=== PATIENT | female | born 1980 ===

== ENCOUNTER → 2023-11-04 10:38 | Outpatient (REF) | payer MEDICARE, OTHER, SELFPAY | LOC: RAD 10:38 | PROVIDERS: ATTENDING PHYSICIAN Physician Assistant Surgical | DX: S30.1XXD Contusion of abdominal wall, subsequent encounter (principal) | CPT/HCPCS: 76705 ==

== ENCOUNTER 2023-12-24 17:22 | Emergency (ER) | payer MEDICARE, OTHER, SELFPAY ==
[2023-12-24 17:22] VITALS: BMI 27.6
[2023-12-24 17:32] VITALS: BP 134/79
--- NOTE | 2023-12-24 19:09 | ED.GENMED ---
History of Present Illness
General
Chief Complaint: Female Patient Services Technician/Gu symptoms
Source: patient
Exam Limitations: none
Time Seen by Provider: 12/24/23 18:28
Nursing documentation reviewed up to this point in time: agreed with
Travel History
Have you had any contact with someone who has COVID-19?: No
Do you have any symptoms of coronavirus? Fever > 100 degrees, chills, cough, shortness of breath, sore throat, loss of taste or smell, muscle aches, or headache?: No
History of Present Illness
History of Present Illness:
43-year-old female presents emerged part complaining of left pelvic pain. She has a history of a left ovarian cyst, and is concerned she has a torsion. She called her gynecology oncology at [facility] who told her to discuss with her local TAX ADJUSTER.
She called Dr. Castellanos and was directed to the emergency department. She reports severe pain 2 days ago, and a dull pain for the past 2 weeks.
Past History
Past History
ED Past Medical History: Psychiatric (Bipolar)
ED Past Surgical History: Other (Abdominoplasty/liposuction/fat transfer to buttocks)
Social History
Tobacco: Non-smoker
Alcohol: None
Drug: None
Living: with family
Review of Systems
Review of Systems
Allergies reviewed?: Yes
All Other Systems: Not applicable
Constitutional: Reports no symptoms
EENT: Reports no symptoms
Respiratory: Reports no symptoms
Cardiac: Reports no symptoms
ABD/GI: Reports no symptoms
: Reports other (Pelvic pain left)
Musculoskeletal: Reports no symptoms
Skin: Reports no symptoms
Neurological: Reports no symptoms
Endocrine: Reports no symptoms
Hematologic/Lymphatic: Reports no symptoms
Psychiatric: Reports no symptoms
Phy Exam
Physical Exam
Physical Exam:
Physical Exam
General: no apparent distress, not acutely ill
Neck: supple. no meningeal signs. normal posterior pharynx
Heart: s1/s2 regular rate and rhythm, no murmur. equal radial
pulses.
HEENT: Pupils equal round reactive to light, EOMI
Lungs: no acute respiratory distress. clear bilaterally
Abdomen: normal bowel sounds. No CVAT, left pelvic tenderness, no rebound or guarding
Neuro: alert and oriented. no focal neurological deficits cranial nerves II through XII intact
Skin: no rash
Psychiatric: well kept. interactive and cooperative
Extremities: no edema. no calf tenderness. negative homans. good distal pulses
Course
Orders/Labs/Results
Orders:
Orders
12/24/23 17:34
Pelvis & Transvaginal US [US Pelvis W Transvag Combined] Urgent
Comment:
Reason For Exam: r/o L ovarian torsion
12/24/23 19:05
IV Insert/Care/Rem.- Treatment PRN
Morphine Sulfate 4 mg IV NOW STA
Ondansetron Injectable [Zofran] 4 mg IV NOW STA
12/24/23 19:08
Test Result ONCE
12/24/23 19:24
Complete Blood Count/With Diff Urgent
Comprehensive Metabolic Panel Urgent
HCG, Serum Qualitative Screen Urgent
12/24/23 20:42
Morphine Sulfate 4 mg .ROUTE .STK-MED ONE
12/24/23 20:44
Morphine Sulfate 4 mg .ROUTE .STK-MED ONE
12/24/23 20:45
Morphine Sulfate 4 mg IV NOW STA
12/24/23 21:26
Oxycodone/Acetaminophen [Percocet 5/325] 1 tablet PO Q4HPRN PRN
Abnormal Lab Results
12/24/23
19:24
Hgb 11.4 L g/dL
(12.0-16.0)
Hct 34.9 L %
(37.0-47.0)
MCH 26.6 L pg
(27.0-31.0)
MCHC 32.7 L g/dL
(33.0-37.0)
Absolute Monos (auto) 0.8 H 10^3/uL
(0.1-0.6)
Sodium 134 L mmol/L
(135-145)
Chloride 110 H mmol/L
(98-107)
Carbon Dioxide 20 L mmol/L
(22-30)
12/24/23 19:24
12/24/23 19:24
Vital Signs
Initial and Last Documented VS:
Initial Vital Signs
Temp Pulse Resp BP Pulse Ox
98.9 F 79 16 134/79 99
12/24/23 17:32 12/24/23 17:32 12/24/23 17:32 12/24/23 17:32 12/24/23 17:32
Last Documented Vital Signs
Temp Pulse Resp BP Pulse Ox
98.9 F 79 16 116/53 99
12/24/23 17:32 12/24/23 17:32 12/24/23 17:32 12/24/23 20:30 12/24/23 20:58
MDM/Problems Addressed
Differential Diagnosis Includes:
Ovarian torsion, ovarian cyst
MDM/Problems Addressed:
43-year-old female with left dermoid cyst, no blood flow seen.
Discussed with Dr. Mckeon at 7:30 PM, recommended I discussed with on-call Dr. Valentin. Sent a Rainelle text to Dr. Valentin at 7:34 PM, recommended I transfer patient to [facility] for surgery due to her prior abdominoplasty.
8:25 PM, discussed with Dr. Ton Mcdonnell at [facility], who states that they do not except benign TAX ADJUSTER emergencies such as ovarian torsion. 8:26 PM, Rainelle text sent to Dr. Valentin, requested she see patient.
*Radiology
Radiology exam reviewed: radiology read reviewed (Ultrasound shows left dermoid cyst, no blood flow seen on left ovary)
*Pulse Oximetry
Patient hypoxic: no
*EKG
Interpreted by ED Provider?: NA
*Safe Technician Interpretation
Rate: Safe Technician- N/A
*Critical Care Note
Total Time (30-74mins, 75-104mins- exclusive of procedures): Not Applicable
Patient Management
Social determinants of health affecting care: Living situation
Discussion with other providers: Hospitalist and Lining Baster (Discussed with TAX ADJUSTER Dr. Valentin, who does not suspect torsion. Stable for discharge.)
Escalation/DeEscalation of care consider admission/obs:
Admit not indicated,
ED Attending Note
-
Portions of this chart may have been created with voice recognition software.� Occasional wrong word or��sound alike� substitutions may have occurred due to the inherent limitations of voice recognition software.
Discharge Plan
Departure
Patient Disposition: Home (Routine Discharge)
Date of Disposition: 12/24/23
Time of Disposition: 21:36
Patient with high blood pressure during this ER visit?: No
Condition: Good
Discharge Problem:
Dermoid cyst of left ovary
Instructions: Ovarian Cyst ED
Prescriptions:
No Action
rabeprazole 20 mg Tablet,Delayed Release (Dr/Ec)
20 mg PO BID
valproic acid (as sodium salt) 250 mg/5 mL Solution
300 mg PO HS
Patient Comments:
12/24/2023: last filled 10/31/23, 540 ml for 90 days from [facility]
zolpidem [Ambien] 10 mg Tablet
10 mg PO HS PRN (Reason: insomnia)
Patient Comments:
12/24/2023: last filled 12/19/23, 90 tabs for 90 days from [facility]
Ibsrela 50 mg tablet
50 mg PO BID
clonazepam 0.5 mg tablet
0.5 mg PO TID
Patient Comments:
12/24/2023: last filled 12/19/23, 90 tabs for 30 days from [facility]
lithium carbonate 300 mg tablet extended release
600 mg PO HS
risperidone 0.25 mg tablet
0.25 mg PO HS
Patient Comments:
12/24/2023: taken w/ 0.5mg = 0.75mg
ipratropium bromide 42 mcg (0.06 %) spray,non-aerosol
2 spray INTRANASAL TID
risperidone 0.5 mg tablet
0.5 mg PO HS
Patient Comments:
12/24/2023: taken w/ 0.25mg = 0.75mg
cyclosporine [Restasis] 0.05 % dropperette
1 drp BOTH EYES BID
Referrals:
NONE,* [Family Provider] -
Activity Restrictions/Additional Instructions:
Follow up with Dr. Karlene Redding, as scheduled. Return for any concerns.
Interventions
Interventions:
*Risk Screen - Suicide Last Done: 12/24/23 17:30
*General Assessment Last Done: 12/24/23 17:30
*Neglect/Abuse Screening Last Done: 12/24/23 17:30
ED- Fall Risk Assessment Last Done: 12/24/23 19:33
*ED COVID-19 Vaccine History Last Done: 12/24/23 17:30
*Nursing Disposition Last Done: 12/24/23 21:57
ED-Female Genitourinary Assessment Last Done: 12/24/23 19:06
Discharge Date and Time
Discharge Date/Time: 12/24/23 21:58
Print Language: MALAWIAN
[2023-12-24 19:24] VITALS: BP 104/64
[2023-12-24 19:29] LABS: % Basophils 0.5 % (0-2); % Immature Granulocytes 0.3 % (0-0.5); % Lymphocytes 27.7 % (20.5-51.1); % Monocytes 8.6 % (1.7-9.3); % Neutrophils 62.9 % (42.2-75.2); Absolute Basophils 0.1 10^3/uL (0-0.2); Absolute Lymphocytes 2.6 10^3/uL (1.2-3.4); Absolute Monocytes 0.8 10^3/uL (0.1-0.6); Absolute Neutrophils 5.8 10^3/uL (1.4-6.5); Hematocrit 34.9 % (37.0-47.0); Hemoglobin 11.4 g/dL (12.0-16.0); Mean Corp Hgb Conc. 32.7 g/dL (33.0-37.0); Mean Corpuscular Hgb 26.6 pg (27.0-31.0); Mean Corpuscular Volume 81.4 fL (81.0-99.0); Mean Platelet Volume 9.9 fL (7.4-10.4); Nucleated Red Blood Cells % 0 %; Platelet Count 340 10^3/uL (130-400); Red Blood Cell Count 4.29 10^6/uL (4.20-5.40); Red Cell Dist. Width 13.3 % (11.5-14.5); White Blood Cell Count 9.3 10^3/uL (4.8-10.8)
[2023-12-24] MEDS: MORPHINE SULFATE 4 MG IV ×2 (19:30→20:46)
[2023-12-24 19:42] LABS: HCG, Serum Qualitative Screen Negative
[2023-12-24 19:49] LABS: ALT (SGPT) 13 U/L (0-35); AST (SGOT) 18 U/L (14-36); Albumin 4.1 g/dl (3.5-5.0); Alkaline Phosphatase 71 U/L (38-126); Blood Urea Nitrogen 17 mg/dl (7-17); Calcium 9.9 mg/dl (8.4-10.2); Carbon Dioxide 20 mmol/L (22-30); Chloride 110 mmol/L (98-107); Estimated Creatinine Clearance 96 ml/min; Glucose 83 mg/dl (70-99); Potassium 4.3 mmol/L (3.5-5.1); Sodium 134 mmol/L (135-145); Total Bilirubin 0.2 mg/dl (0.2-1.3); Total Protein 6.4 g/dl (6.3-8.2); eGFR > 60.00
[2023-12-24 19:54] VITALS: BP 99/49
[2023-12-24 20:00] VITALS: BP 107/67
[2023-12-24 20:30] VITALS: BP 116/53
[2023-12-24] MEDS: PERCOCET 5/325 1 TABLET PO (21:46)
== END 2023-12-24 21:58 | disposition home or self-care (01) ==
LOC: EMR 17:22
PROVIDERS: EMERGENCY PHYSICIAN Emergency Medicine; OTHER PHYSICIAN Obstetrics & Gynecology Gynecology
DX: R10.2 Pelvic and perineal pain (principal); R10.32 Left lower quadrant pain; D27.1 Benign neoplasm of left ovary; D25.9 Leiomyoma of uterus, unspecified; F31.9 Bipolar disorder, unspecified; M19.90 Unspecified osteoarthritis, unspecified site; G24.01 Drug induced subacute dyskinesia; L73.2 Hidradenitis suppurativa
CPT/HCPCS: 99284; 96374; 96376; 76830; 76856; 80053; 84703; 85025

== ENCOUNTER 2024-01-01 17:29 | Emergency (ER) | payer MEDICARE, OTHER, SELFPAY ==
[2024-01-01 17:36] VITALS: BP 127/79
[2024-01-01 17:49] LABS: % Basophils 0.6 % (0-2); % Immature Granulocytes 0.4 % (0-0.5); % Monocytes 6.5 % (1.7-9.3); % Neutrophils 67.5 % (42.2-75.2); Absolute Basophils 0.1 10^3/uL (0-0.2); Absolute Lymphocytes 2.7 10^3/uL (1.2-3.4); Absolute Monocytes 0.7 10^3/uL (0.1-0.6); Absolute Neutrophils 7.3 10^3/uL (1.4-6.5); Hemoglobin 11.2 g/dL (12.0-16.0); Mean Corp Hgb Conc. 32.9 g/dL (33.0-37.0); Mean Corpuscular Hgb 26.5 pg (27.0-31.0); Mean Corpuscular Volume 80.6 fL (81.0-99.0); Mean Platelet Volume 9.5 fL (7.4-10.4); Nucleated Red Blood Cells % 0 %; Platelet Count 344 10^3/uL (130-400); Red Blood Cell Count 4.22 10^6/uL (4.20-5.40); Red Cell Dist. Width 13.2 % (11.5-14.5); White Blood Cell Count 10.8 10^3/uL (4.8-10.8)
[2024-01-01 18:00] LABS: HCG, Serum Qualitative Screen Negative
[2024-01-01 18:11] LABS: ALT (SGPT) 19 U/L (0-35); AST (SGOT) 17 U/L (14-36); Albumin 4.1 g/dl (3.5-5.0); Alkaline Phosphatase 77 U/L (38-126); Blood Urea Nitrogen 15 mg/dl (7-17); Calcium 9.3 mg/dl (8.4-10.2); Carbon Dioxide 26 mmol/L (22-30); Chloride 106 mmol/L (98-107); Glucose 115 mg/dl (70-99); Potassium 4.5 mmol/L (3.5-5.1); Sodium 134 mmol/L (135-145); Total Bilirubin 0.2 mg/dl (0.2-1.3); Total Protein 6.3 g/dl (6.3-8.2); eGFR > 60.00
--- NOTE | 2024-01-01 19:17 | ED.GENMED ---
History of Present Illness
<KYLEE Elaine - Last Filed: 01/01/24 23:00>
General
Chief Complaint: Female Mass Spec/Gu symptoms
Source: patient
Exam Limitations: none
Time Seen by Provider: 01/01/24 18:01
Travel History
Have you had any contact with someone who has COVID-19?: No
Do you have any symptoms of coronavirus? Fever > 100 degrees, chills, cough, shortness of breath, sore throat, loss of taste or smell, muscle aches, or headache?: No
History of Present Illness
History of Present Illness:
This is a 43 year old female that comes in with c/o left ovarian pain. Patient states that she was seen here on Saturday . States that she is going to [facility] on the for surgery as she was told it was to complicated for the POWER CHISEL OPERATOR here. States
that on Saturday she has a large cyst on ovary. Today she was in the car and driving and she got this shooting pain. States that about 1/2 hour after the pain started she got out of the car and noted that she had blood running down her leg.
States that she called the OB and was told to come to the ER. States that she has not had any further bleeding since that time but has continue with pain. States that 3 days ago she also started with some back pain. This has not gone away since.
States that she has been taking her Percocet but this is not helping the pain. States that she has had diarrhea. Denies any fever, chills, chest pain, SOB, nausea, vomiting, headache, dizziness, urinary burning.
Past History
<KYLEE Elaine - Last Filed: 01/01/24 23:00>
Past History
ED Past Medical History: Psychiatric (Bipolar) and Other (Migraine, Tardive Dyskinesia, Renal calculus, Anemia, IBS-C)
ED Past Surgical History: Orthopedic (Left knee surgery), Tonsilectomy (Adenoids) and Other (Abdominoplasty/liposuction/fat transfer to buttocks, Nasal surgery, Breast Augmentation, )
Social History
Tobacco: Former smoker (Uses [employer] to have something to hold)
Alcohol: None
Drug: None
Personal:
Living: with family
Review of Systems
<KYLEE Elaine - Last Filed: 01/01/24 23:00>
Review of Systems
Constitutional: Reports no symptoms; Denies fever or chills
EENT: Reports no symptoms
Respiratory: Denies cough or trouble breathing
Cardiac: Reports no symptoms; Denies chest pain
ABD/GI: Reports abdominal pain and diarrhea; Denies nausea or vomiting
: Reports bleeding (Vaginal bleeding); Denies dysuria, frequency or urgency
Musculoskeletal: Reports no symptoms
Skin: Reports no symptoms
Neurological: Reports no symptoms; Denies dizzy or headache
Psychiatric: Reports no symptoms
Phy Exam
<KYLEE Elaine - Last Filed: 01/01/24 23:00>
General Physical Exam
General Presentation: mild distress
General age: appears stated age
General Skin: warm and dry
General Habitus: normal
General Mental: alert
General Hydration: appears well hydrated
ENT Exam
ENT Exam: TM's normal, pharynx normal and neck supple
Eye Exam
Eye Exam: EOMI
Cardiovascular Exam
Cardiovascular Exam: regular rate/rhythm, no edema, no murmur and normal peripheral pulses
Pulmonary Exam
Pulmonary Exam: lungs clear, no respiratory distress, no rales, chest non tender, no crackles, no rhonchi, no wheezing and no cough
Gastrointestinal Exam
Gastrointestinal Exam: normal bowel sounds, soft, no organomegaly, no pulsatile mass, non distended and tender (Generalized tenderness with palpation)
Musculoskeletal Exam
Musculoskeletal Exam: full ROM and no edema
Skin Exam
Skin Exam: normal color, warm/dry, no rash and no petechia
Psychiatric Exam
Psychiatric Exam: normal mood/affect
Course
<KYLEE Elaine - Last Filed: 01/01/24 23:00>
Orders/Labs/Results
Orders:
Orders
01/01/24 17:38
US Pelvis W Transvag Combined Urgent
Comment:
Reason For Exam: rule out left torsion
01/01/24 17:39
Test Result ONCE
01/01/24 17:42
Complete Blood Count/With Diff Urgent
Comprehensive Metabolic Panel Urgent
HCG, Serum Qualitative Screen Urgent
01/01/24 19:17
HYDROmorphone [Dilaudid] 0.5 mg IV NOW STA
Ondansetron Injectable [Zofran] 4 mg IV NOW STA
01/01/24 19:41
HYDROmorphone [Dilaudid] 0.5 mg IV NOW STA
01/01/24 20:14
Urinalysis Reflex To Culture Urgent
Date Specimen was Collected: 01/01/24
Time Specimen was Collected: 17:39
Urine Microscopic Reflex Cult Urgent
01/01/24 20:30
Midazolam HCl [Versed] 2 mg .ROUTE .STK-MED ONE
01/01/24 20:31
Dexamethasone Sod Phosphate [Decadron] 20 mg .ROUTE .STK-MED ONE
Fentanyl Citrate/Pf [Sublimaze] 100 mcg .ROUTE .STK-MED ONE
Lidocaine 2% Mpf [Xylocaine Mpf 2%] 100 mg .ROUTE .STK-MED ONE
Ondansetron Injectable [Zofran] 4 mg .ROUTE .STK-MED ONE
Propofol [Diprivan] 20 ml .ROUTE .STK-MED
Rocuronium [place] [Rocuronium] 50 mg .ROUTE .STK-MED ONE
01/01/24 20:51
CT Abd/pelvis W Iv Cont Urgent
Comment: r/o renal calculus. Look at Seroma
Reason For Exam: ABd pain,
01/01/24 21:23
Chlamydia/GC by PCR Urgent
[facility] Source: Endo-Cervical
Specimen Description:
Source:: ENDOCERVICAL
Date Specimen was Collected: 01/01/24
Time Specimen was Collected: 20:56
01/01/24 22:35
HYDROmorphone [Dilaudid] 1 mg IV NOW STA
Abnormal Lab Results
01/01/24 01/01/24
17:42 20:14
Hgb 11.2 L g/dL
(12.0-16.0)
Hct 34.0 L %
(37.0-47.0)
MCV 80.6 L fL
(81.0-99.0)
MCH 26.5 L pg
(27.0-31.0)
MCHC 32.9 L g/dL
(33.0-37.0)
Absolute Neuts (auto) 7.3 H 10^3/uL
(1.4-6.5)
Absolute Monos (auto) 0.7 H 10^3/uL
(0.1-0.6)
Sodium 134 L mmol/L
(135-145)
Glucose 115 H mg/dl
(70-99)
Ur Occult Blood Reflex 4+ A
(Negative)
Urine RBC 7-10 A /HPF
(0-2)
Urine Bacteria (Reflex) Few A
(Negative)
01/01/24 17:42
01/01/24 17:42
H/H slighty elevated Glucose nonfasting. HCG negative
Vital Signs
Initial and Last Documented VS:
Initial Vital Signs
Temp Pulse Resp BP Pulse Ox
98.8 F 82 17 127/79 99
01/01/24 17:36 01/01/24 17:36 01/01/24 17:36 01/01/24 17:36 01/01/24 17:36
Last Documented Vital Signs
Temp Pulse Resp BP Pulse Ox
98.8 F 82 17 127/79 99
01/01/24 17:36 01/01/24 17:36 01/01/24 17:36 01/01/24 17:36 01/01/24 17:36
<Gauri Nathan MD - Last Filed: 01/01/24 19:46>
Orders/Labs/Results
Orders:
Orders
01/01/24 17:38
US Pelvis W Transvag Combined Urgent
Comment:
Reason For Exam: rule out left torsion
01/01/24 17:39
Test Result ONCE
01/01/24 17:42
Complete Blood Count/With Diff Urgent
Comprehensive Metabolic Panel Urgent
HCG, Serum Qualitative Screen Urgent
01/01/24 19:17
HYDROmorphone [Dilaudid] 0.5 mg IV NOW STA
Ondansetron Injectable [Zofran] 4 mg IV NOW STA
01/01/24 19:41
HYDROmorphone [Dilaudid] 0.5 mg IV NOW STA
01/01/24 20:14
Urinalysis Reflex To Culture Urgent
Date Specimen was Collected: 01/01/24
Time Specimen was Collected: 17:39
Urine Microscopic Reflex Cult Urgent
01/01/24 20:30
Midazolam HCl [Versed] 2 mg .ROUTE .STK-MED ONE
01/01/24 20:31
Dexamethasone Sod Phosphate [Decadron] 20 mg .ROUTE .STK-MED ONE
Fentanyl Citrate/Pf [Sublimaze] 100 mcg .ROUTE .STK-MED ONE
Lidocaine 2% Mpf [Xylocaine Mpf 2%] 100 mg .ROUTE .STK-MED ONE
Ondansetron Injectable [Zofran] 4 mg .ROUTE .STK-MED ONE
Propofol [Diprivan] 20 ml .ROUTE .STK-MED
Rocuronium [place] [Rocuronium] 50 mg .ROUTE .STK-MED ONE
01/01/24 20:51
CT Abd/pelvis W Iv Cont Urgent
Comment: r/o renal calculus. Look at Seroma
Reason For Exam: ABd pain,
01/01/24 21:23
Chlamydia/GC by PCR Urgent
[facility] Source: Endo-Cervical
Specimen Description:
Source:: ENDOCERVICAL
Date Specimen was Collected: 01/01/24
Time Specimen was Collected: 20:56
01/01/24 22:35
HYDROmorphone [Dilaudid] 1 mg IV NOW STA
Abnormal Lab Results
01/01/24 01/01/24
17:42 20:14
Hgb 11.2 L g/dL
(12.0-16.0)
Hct 34.0 L %
(37.0-47.0)
MCV 80.6 L fL
(81.0-99.0)
MCH 26.5 L pg
(27.0-31.0)
MCHC 32.9 L g/dL
(33.0-37.0)
Absolute Neuts (auto) 7.3 H 10^3/uL
(1.4-6.5)
Absolute Monos (auto) 0.7 H 10^3/uL
(0.1-0.6)
Sodium 134 L mmol/L
(135-145)
Glucose 115 H mg/dl
(70-99)
Ur Occult Blood Reflex 4+ A
(Negative)
Urine RBC 7-10 A /HPF
(0-2)
Urine Bacteria (Reflex) Few A
(Negative)
01/01/24 17:42
01/01/24 17:42
Vital Signs
Initial and Last Documented VS:
Initial Vital Signs
Temp Pulse Resp BP Pulse Ox
98.8 F 82 17 127/79 99
01/01/24 17:36 01/01/24 17:36 01/01/24 17:36 01/01/24 17:36 01/01/24 17:36
Last Documented Vital Signs
Temp Pulse Resp BP Pulse Ox
98.8 F 82 17 127/79 99
01/01/24 17:36 01/01/24 17:36 01/01/24 17:36 01/01/24 17:36 01/01/24 17:36
<KYLEE Elaine - Last Filed: 01/01/24 23:00>
MDM/Problems Addressed
Differential Diagnosis Includes:
Dermoid cyst, Ovarian torsion.
MDM/Problems Addressed:
This is a 43 year old female that comes in with c/o increased left sided abd pain and bleeding. States that she was in her car and started with sharp left lower abd pain. States that when she got out of the car about a 1/2 hour later she felt she
was wet and had blood running down her leg. Patient was told to come to the ER. Patient is due to have her Dermoid removed on January 02.
Will get labs and US.
Message sent to Dr Key. Would like her to see patient. She is coming down to see patient.
Spoke with the Radiologist. States that no blood flow to the left ovary, but absence of peritoneal fluid in the pelvis makes acute disease unlikely. Large dermoid cyst in the left ovary which is hypovascular and unchanged.
Back into see patient. Patient has been evaluated by. Dr Key earlier and had a pelvic exam. Patient was then ordered for a CT scan. Dr. Key reviewed the CT scan and felt that the patient can go home and follow up at [facility] for her surgery.
Will send a prescription for Dilaudid to her pharmacy to hold her through till her surgery. Patient to return with any concerns.
Chronic conditions affecting care: Other (History of Dermoid cyst)
Acute Exacerbation and/or Progression of Chronic Illness:
Dermoid cyst
<KYLEE Elaine - Last Filed: 01/01/24 23:00>
*Radiology
Radiology exam reviewed: radiology read reviewed (US- Large 6.5cm mass in the left ovary consistent with a large left ovarian dermoid cyst. (Mature Teratoma) which is not definitely change. IUD in the endometrial canal. Multiple intramural uterine
leiomyoma. NO sonographic evidence for peritoneal fluid in the pelvis. CT- 6.2cm left ovarian), all reviewed NAD by ED Provider (CT cont- dermoid cyst (mature teratoma) which appears unchnged form 07/29/2023. Minimal peritoneal fluid in the pelvic
cul-de-sac. IUD in the endometrial canal. 2.5cm leiomyoma in the right uterine body. Mild Splenomegaly. Moderate circumferential wall thickening in left upper quadrant jejunal loops) and other (CT cont- which could be secondary to an acute
enteritis. Minimal bilateral pleural effusions. )
*Pulse Oximetry
Patient hypoxic: no
*EKG
Interpreted by ED Provider?: NA
Rate: EKG- N/A
*Electrical Journeyman Interpretation
Rate: Electrical Journeyman- N/A
*Critical Care Note
Total Time (30-74mins, 75-104mins- exclusive of procedures): Not Applicable
ED Attending Note
<KYLEE Elaine - Last Filed: 01/01/24 23:00>
-
Portions of this chart may have been created with voice recognition software.� Occasional wrong word or��sound alike� substitutions may have occurred due to the inherent limitations of voice recognition software.
<Gauri Nathan MD - Last Filed: 01/01/24 19:46>
ED Attending Note
Patient seen and examined by attending physician: Yes
I performed the substantive portion of visit, reviewed & personally made and approve the management plan that is documented in note by myself or ALONA.: Yes
ED Attending Note:
43-year-old female complains of pain that got suddenly worse around 11 AM today in the left lower quadrant/pelvic area. Patient has a history of a dermoid cyst in this area and has been having intermittent pain. She also noted vaginal pain at that
time. Vaginal bleeding is ceased, pain is better but still present. No nausea, vomiting, chest pain, shortness of breath, or other complaints.
Discharge Plan
Departure
Patient Disposition: Home (Routine Discharge)
Date of Disposition: 01/01/24
Time of Disposition: 22:54
Patient with high blood pressure during this ER visit?: Yes
Condition: Good
Covid-19: Not Applicable
Discharge Problem:
Dermoid cyst of left ovary
Instructions: Ovarian Cyst (DC), BLOOD PRESSURE
Prescriptions:
New
hydromorphone [Dilaudid] 2 mg tablet
2 mg PO Q6H PRN (Reason: Pain) Qty: 4 0RF
No Action
rabeprazole 20 mg Tablet,Delayed Release (Dr/Ec)
20 mg PO BID
valproic acid (as sodium salt) 250 mg/5 mL Solution
300 mg PO HS
Patient Comments:
12/24/2023: last filled 10/31/23, 540 ml for 90 days from [facility]
zolpidem [Ambien] 10 mg Tablet
10 mg PO HS PRN (Reason: insomnia)
Patient Comments:
12/24/2023: last filled 12/19/23, 90 tabs for 90 days from [facility]
Ibsrela 50 mg tablet
50 mg PO BID
clonazepam 0.5 mg tablet
0.5 mg PO TID
Patient Comments:
12/24/2023: last filled 12/19/23, 90 tabs for 30 days from [facility]
lithium carbonate 300 mg tablet extended release
600 mg PO HS
risperidone 0.25 mg tablet
0.25 mg PO HS
Patient Comments:
12/24/2023: taken w/ 0.5mg = 0.75mg
ipratropium bromide 42 mcg (0.06 %) spray,non-aerosol
2 spray INTRANASAL TID
risperidone 0.5 mg tablet
0.5 mg PO HS
Patient Comments:
12/24/2023: taken w/ 0.25mg = 0.75mg
cyclosporine [Restasis] 0.05 % dropperette
1 drp BOTH EYES BID
Referrals:
NONE,* [Family Provider] -
Activity Restrictions/Additional Instructions:
As discussed, your blood work shows that you are anemic, otherwise your blood work is normal. You have had a Repeat US and CT scan and been seen by the POWER CHISEL OPERATOR. You can follow up with the Doctor at [facility] for your surgery on the as planned.
You have had a prescription sent to your Pharmacy for Dilaudid to help with the pain. DO NOT TAKE THIS WILL THE PERCOCET. IF YOU HAVE ANY OTHER CONCERNS PLEASE RETURN TO THE EMERGENCY ROOM.
Interventions
Interventions:
*Risk Screen - Suicide Last Done: 01/01/24 20:38
*General Assessment Last Done: 01/01/24 20:38
*Neglect/Abuse Screening Last Done: 01/01/24 20:38
ED- Fall Risk Assessment Last Done: 01/01/24 20:38
*ED COVID-19 Vaccine History Last Done: 01/01/24 20:38
ED-Female Genitourinary Assessment Last Done: 01/01/24 19:05
Discharge Date and Time
Print Language: [place]
[2024-01-01] MEDS: DILAUDID 0.5 MG IV (20:11)
[2024-01-01] MEDS: ZOFRAN 4 MG IV (20:11)
[2024-01-01 20:31] LABS: Urine Albumin Negative (Neg - Trace); Urine Bilirubin Negative (Negative); Urine Character Clear (Clear); Urine Color Yellow; Urine Glucose Negative (Negative); Urine Ketone Negative (Negative); Urine Leukocyte Negative (Negative); Urine Nitrite Negative (Negative); Urine Occult Blood 4+ (Negative); Urine Urobilinogen Negative (Neg - 1+)
[2024-01-01 20:45] LABS: Urine Squamous Cell 26-30 /LPF (Few)
[2024-01-01 20:47] LABS: Urine Bacteria Few (Negative)
--- NOTE | 2024-01-01 21:11 | CON.MD ---
Consultation - Medical
-
CONSULTING PHYSICIAN: Luann Key DO
REFERRING PHYSICIAN: KYLEE Steinberg
DATE/TIME OF REQUEST: 01/01/2024 @1943
DATE/TIME OF CONSULTATION: 01/01/2024 @2011
REASON FOR CONSULT: Left dermoid cyst, rule out torsion.
HISTORY OF PRESENT ILLNESS: The patient is a 43-year-old , LMP last week, using Paragard IUD for BC, presenting to the ER tonight
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 Dermoid has become increasingly larger and
more symptomatic, causing intermittent left pelvic pain, over the past two years. The
patient was originally evaluated by Dr. Mckeon for the dermoid cyst, but ultimately patient was sent to [facility] for
consultation d/t h/o prior abdominoplasty that was complicated by infections/seromas and need for
sclerotherapy treatment. The patient is scheduled to undergo left oophorectomy/bilateral salpingectomy (+ IUD removal)
with Dr. Karlene Redding at [facility] this Saturday, 20APR. The pain has been increasing in
frequency and intensity, so she has been taking Percocet prn for the pain to get her through until surgery.
The patient presents to the emergency room today due to a pain episode that started after she went out for breakfast and was driving at abnout 11am.
Noted some light vaginal bleeding at that time. Period ended a couple days ago. Bleeding has pretty much stopped now.
Pain is across the whole lower abdomen, worse on the left side. Took a Percocet with minimal relief. Dilaudid given in the ER x1 and that helped.
Also, has been having b/l flank pain for about 3 days. Has a h/o kidney stones several years ago. Thinks she had some blood in her urine.
In the emergency room here, the patient has had blood work, all of which was unremarkable, and she also
underwent a pelvic ultrasound. In the ultrasound report, there was no blood flow that was demonstrated and torsion could not be
excluded (though radiologist said he does not suspect acute pathology) and therefore I was consulted to see if there was an ovarian torsion. Of note,
these US findings are stable from previous US on 12/24/2023, which was her last visit to the ER for this reason.
PAST MEDICAL HISTORY:
1. depression/anxiety
2. Hidradenitis suppurativa.
3. Tardive dyskinesia.
4. Persistent abdominal wall seroma
5. h/o gastric ulcer (required blood transfusion in her 20s)
6. Anemia
7. IBS-c
PAST SURGICAL HISTORY:
1. Tonsillectomy.
2. Thyroid cyst.
3. Meniscus repair.
4. Breast lift, liposuction, and abdominoplasty-- 2020, complicated by abdominal seroma, s/p sclerotherapy
5. surgical termination of in her 20s
PAST FAMILY HISTORY: Paternal grandmother with breast cancer in her 70s. sister- thyroid cancer
SOCIAL HISTORY: The patient vapes. Denies alcohol or drug use.
PAST POUNCER HISTORY: Not currently sexually active. ParaGard placed
in 2021. Dermoid cyst first seen on CT in 2020. At that time, it
was 2-3 cm and now 6cm. Denies STIs.
PAST OB HISTORY: . .
ALLERGIES: No known drug allergies.
MEDICATIONS: klonopin 0.5mg TID prn anxiety,
Ipratropium bromide- 2 sprays per nostril TID
[place] 600mg PO qHS
Rabeprazole 20mg BID
Risperidone 0.25mg PO qHS
Ibsrela 50mg BID
Valproate 300mg PO qHS
Ambien 20mg qHS prn sleep
REVIEW OF SYSTEMS:
POSITIVE for: abdominal pain, b/l flank pain, intermenstrual bleeding, ?hematuria, +decreased appetite today, +nausea earlier, none now. No vomiting.
DENIES: chills and fever. : vaginal itch, vaginal discharge. urinary frequency or hesitancy, dysuria.
ENT: No ear infections or double vision. ENDO: Negative for weight gain or weight loss, cold intolerance.
weight gain, or weight loss. Respiratory: Negative for cough,
shortness of breath. Negative for chest pain or irregular
heartbeat. GI: Negative for change in bowel habits (has chronic constipation due to IBS-c, and then loose stools due to her medication.
+normal BM this morning). Negative for current nausea or vomiting. Hematologic: Negative for easy bleeding.
PHYSICAL EXAMINATION:
VITAL SIGNS: wnl- see below
GEN: NAD, WD/WN
HEART: normal
LUNGS: Clear to auscultation.
ABDOMEN: Soft, nontender (initially TTP, but pt easily distractible during exam), nondistended. No peritoneal signs. No rebound. No
guarding. large well-healed scars noted from prior abdominoplasty
GYNECOLOGIC: Vulva/vaginal normal. no abnormal discharge in vault.
scant menstrual-appearing blood in vault, IUD strings seen at os. GC/CT swab obtained and sent
Uterus normal size, anteverted, nontender. No CMT.. Adnexa nontender, left ovary enlarged.
MUSCULOSKELETAL: No cervical motion tenderness. +b/l CVAT, L>R
LABORATORY DATA: see below
IMAGING: See below
ASSESSMENT:
43-year-old with chronic, increasing left lower quadrant pain with a known left
6cm ovarian dermoid cyst. There is no clinical evidence of an ovarian torsion on
exam today-- pt appears comfortable, non-tender pelvic exam, no leukocytosis, and the ovarian
dermoid size is similar to how it was seen back in 07/2023 and with no appreciable difference in appearance
from US on 12/24/2023. If torsion were present, would expect that the patient would have more appreciable
tenderness on exam and ovary would be larger than it was previously seen on imaging. Giving her benign exam,
normal blood work, and non-changing pelvic ultrasound, clinically do not suspect ovarian torsion.
Because of the b/l flank pain, h/o nephrolithiasis and possible hematuria, recommend imaging to r/o nephrolithiasis
as a reason for her acute pain. Could get CT to also r/o other acute pathology.
If no e/o other pathology on CT scan that needs to be acutely addressed, would discharge home with continued pain management until
planned left oophorectomy/BS/IUD removal on Saturday, APR at [facility] with cafe assistant onc, Dr. Mclean.
Emmy Key, DO
Vital Signs / Labs
-
Vital Signs and Labs:
Temp Pulse Resp BP Pulse Ox
98.8 F 82 17 127/79 99
01/01/24 17:36 01/01/24 17:36 01/01/24 17:36 01/01/24 17:36 01/01/24 17:36
01/01/24 17:42
01/01/24 17:42
01/01/24 01/01/24
17:42 20:14
Hgb 11.2 L
Hct 34.0 L
MCV 80.6 L
MCH 26.5 L
MCHC 32.9 L
Absolute Neuts (auto) 7.3 H
Absolute Monos (auto) 0.7 H
Sodium 134 L
Glucose 115 H
Ur Occult Blood Reflex 4+ A
Urine RBC 7-10 A
Urine Bacteria (Reflex) Few A
Imaging Data
-
SignedOrder #:[id number]-- 01/01/2024
Exams: US Pelvis W Transvag Combined
CPT: 73748, 18186
PROCEDURE: US Pelvis W Transvag Combined
CLINICAL INDICATION: Worsening pelvic pain. Vaginal bleeding.
TECHNIQUE: A transabdominal and transvaginal ultrasound examination of the pelvis was performed.
COMPARISON: Comparison is made with an ultrasound examination of the pelvis performed 12/24/[address] examination of the abdomen and pelvis performed 07/29/2023.
FINDINGS:
UTERUS: The uterus measures 8.0 x 3.7 x 4.8 cm in size. There is an intrauterine device (IUD) in the endometrial canal. The endometrium measures 2.5 mm in thickness on the transvaginal images. There is a 1.6 x 1.4 x 1.5 cm intramural leiomyoma in
the right side of the uterine body. There is an adjacent 1.6 x 1.9 x 1.6 cm intramural leiomyoma in the right side of the uterine body.
RIGHT OVARY: The right ovary measures 2.9 x 3.0 x 2.7 cm in size and contains multiple small follicles. There is blood flow demonstrated within the right ovary on color duplex evaluation.
LEFT OVARY: There is a 6.5 x 4.2 x 5.3 cm mass in the left ovary containing mixed echogenicity (regions of hypoechoic echogenicity and other areas of intermediate and hyperechogenicity). There is no evidence for internal vascularity within the mass
on color duplex evaluation.
There is no sonographic evidence for peritoneal fluid in the pelvis.
IMPRESSION:
1. Large 6.5 cm mass in the left ovary consistent with a LARGE LEFT OVARIAN DERMOID CYST (mature teratoma) which is not definitely changed.
2. IUD in the endometrial canal.
3. Multiple intramural uterine leiomyoma.
4. No sonographic evidence for peritoneal fluid in the pelvis.
Electronically signed by Thompson Higuera MD 01/01/2024 7:12 PM
Diagnostic Imaging Report--- 12/24/2023
SignedOrder #:[id number]
Exams: US Pelvis W Transvag Combined
Indication: Left lower quadrant pain.
COMPARISON: 07/29/2023
Scanning parameters:
Real-time/grayscale transabdominal and transvaginal ultrasound of the pelvis was obtained.
FINDINGS:
The uterus is normal in size contour and echogenicity measuring 9.3 x 3.3 x 5.4 cm . There are multiple uterine fibroids. The largest measures 2.1 x 2.3 x 2.0 cm. This is intramural on the right.
There is no significant thickening of the endometrial cavity echo complex which measures 4.1 mm.
There are no abnormal solid or complex adnexal masses.
The right ovary measures 3.1 x 2.1 x 1.5 cm. It is normal in configuration and echogenicity with normal blood flow..
The left ovary is difficult to visualize. There is a large hypoechoic mass in the left adnexa consistent with a known dermoid. It measures 6.0 x 6.1 x 4.7 cm. This previously measured 3.2 x 2.4 x 2.8 cm. No flow is noted within this structure. The
patient is scheduled for dermoid removal 01/03/2024
There is no free fluid in the pelvis.
IMPRESSION:
Enlarged known left adnexal dermoid. Distinct ovarian tissue difficult to visualize. No blood flow demonstrated. Therefore, torsion cannot be excluded
Myomatous uterus. New.
This case was discussed with felisha redding on 12/24/2023 at 7:20 PM
Electronically signed by Shilpa Barragan DO 12/24/2023 7:21 PM
Dictated By: Shilpa Barragan DO
Dictated Date & Time: 12/24/231912
Signed/Co-Signer By: Shilpa Barragan DO /
Signed/Co-Signer Date & Time: 12/24/231920 /
[2024-01-01] MEDS: DILAUDID 1 MG IV (22:59)
== END 2024-01-01 23:22 | disposition home or self-care (01) ==
LOC: EMR 17:29
PROVIDERS: EMERGENCY PHYSICIAN Emergency Medicine
DX: D27.1 Benign neoplasm of left ovary (principal); F31.9 Bipolar disorder, unspecified; D64.9 Anemia, unspecified; K58.1 Irritable bowel syndrome with constipation
CPT/HCPCS: 99284; 96374; 96376; 74177; 76830; 76856; 80053; 81003; 81015; 84703; 85025; 87491; 87591; Q9967

== ENCOUNTER 2025-07-07 10:47 | Inpatient (IN) | payer MEDICARE, OTHER, SELFPAY ==
[2025-06-23 09:03] LABS: Hematocrit 42.0 % (37.0-47.0); Hemoglobin 13.7 g/dL (12.0-16.0); Mean Corp Hgb Conc. 32.6 g/dL (33.0-37.0); Mean Corpuscular Volume 84.2 fL (81.0-99.0); Platelet Count 313 10^3/uL (130-400); Red Cell Dist. Width 16.3 % (11.5-14.5)
[2025-06-23 09:15] LABS: INR 0.99; PT 13.6 Sec (11.4-14.6)
[2025-06-23 09:16] LABS: APTT 30.9 Sec (23.4-35.0)
[2025-06-23 09:35] LABS: ALT (SGPT) 12 U/L (0-35); AST (SGOT) 14 U/L (14-36); Albumin 4.1 g/dl (3.5-5.0); Alkaline Phosphatase 56 U/L (38-126); Blood Urea Nitrogen 14 mg/dl (7-17); Calcium 9.4 mg/dl (8.4-10.2); Carbon Dioxide 25 mmol/L (22-30); Chloride 108 mmol/L (98-107); Glucose 77 mg/dl (70-99); Potassium 4.9 mmol/L (3.5-5.1); Sodium 140 mmol/L (135-145); Total Protein 6.1 g/dl (6.3-8.2); eGFR > 60.00
[2025-06-23 13:54] VITALS: BMI 30.3
[2025-06-23 14:24] LABS: Glycohemoglobin (HgbA1c) 4.8 % (4.0-5.6)
[2025-07-07] VITALS (15 sets, daily range): BP systolic 104–161; BP diastolic 52–148; BMI 30.3
[2025-07-07] MEDS: NORMOSOL-R/PLASMALYTE-A 1000 IV ×2 (11:17→17:29)
[2025-07-07] MEDS: TYLENOL 1000 MG PO (11:17)
[2025-07-07] MEDS: HEPARIN 5000 UNITS SC (11:42)
--- NOTE | 2025-07-07 14:39 | W.IMMPOSTOP ---
Surgical Immed Post Op Note
-
Primary Surgeon: Francesco Fuentes MD
Assistants: RENEE Knox, RN ORTHOPAEDIC, DANITZA Rae
Pre-op Diagnosis: Pelvic dyssynergia
Post-op Diagnosis: Pelvic dyssynergia
Procedure Performed: Laparoscopic Ileostomy
Anesthesia Type: GET
Specimen / Cultures: None
Estimated Blood Loss: 7cc
Complications: None
Operative Findings: No adhesions, viable loop ileostomy
Patients family updated in waiting room
[2025-07-07] MEDS: ZOFRAN 4 MG IV (14:53)
[2025-07-07] MEDS: TORADOL 15 MG IV ×2 (14:53→21:08)
[2025-07-07] MEDS: SUBLIMAZE 25 MCG IV ×2 (14:54→15:06)
[2025-07-07] MEDS: SUBLIMAZE 50 MCG IV ×2 (15:06→15:32)
[2025-07-07] MEDS: COMPAZINE 5 MG IV (15:32)
--- NOTE | 2025-07-07 17:10 | PTCARENOTE ---
Addendum entered by Anabelle Stewart RN 07/07/25 18:15:
Admission amended note to include: (R) Ileostomy red & budded.
Original Note:
Patient arrived @17:10 from PACU in bed, jones catheter in place, VSS.
[2025-07-07] MEDS: MORPHINE SULFATE 4 MG IV (17:28)
[2025-07-07] MEDS: TYLENOL PO ×2 (17:45→21:00)
[2025-07-07] MEDS: MINIPRESS 2 MG PO (21:05)
[2025-07-07] MEDS: ESKALITH 150 MG PO (21:05)
[2025-07-07] MEDS: NON-FORMULARY ITEM 1 SPRAY NASAL (21:08)
[2025-07-07] MEDS: DEPAKENE 350 MG PO (21:09)
[2025-07-07] MEDS: RISPERDAL 0.75 MG PO (21:10)
[2025-07-07] MEDS: PHENERGAN 25 MG PO (21:10)
[2025-07-07] MEDS: ROXICODONE 5 MG PO (21:15)
[2025-07-08] MEDS: TYLENOL PO (00:42)
--- NOTE | 2025-07-08 00:43 | PTCARENOTE ---
Explained to patient the frequency at which vital signs are obtained post op are guidelines set by the hospital. Pt stated she doesnt to be bothered when she's sleeping. Pt refused 2300 vitals. Care ongoing.
[2025-07-08 03:16] VITALS: BP 110/59
[2025-07-08] MEDS: TORADOL 15 MG IV ×2 (03:17→08:03)
[2025-07-08] MEDS: TYLENOL 650 MG PO ×3 (03:17→11:03)
[2025-07-08 03:42] VITALS: BMI 30.1
[2025-07-08] MEDS: NORMOSOL-R/PLASMALYTE-A IV (04:36)
[2025-07-08] MEDS: ROXICODONE 5 MG PO ×2 (06:34→11:03)
[2025-07-08] MEDS: ESKALITH PO (08:02)
[2025-07-08] MEDS: NON-FORMULARY ITEM 2 SPRAY NASAL (08:02)
[2025-07-08] MEDS: LAMICTAL 75 MG PO (08:03)
[2025-07-08] MEDS: NICODERM TRANSDERMAL 21 MG TRANSDERM (08:05)
[2025-07-08 09:05] LABS: Blood Urea Nitrogen 6 mg/dl (7-17); Calcium 9.3 mg/dl (8.4-10.2); Carbon Dioxide 24 mmol/L (22-30); Chloride 110 mmol/L (98-107); Estimated Creatinine Clearance 95 ml/min; Glucose 112 mg/dl (70-99); Potassium 4.5 mmol/L (3.5-5.1); Sodium 137 mmol/L (135-145); eGFR > 60.00
[2025-07-08 09:10] LABS: Hematocrit 43.4 % (37.0-47.0); Hemoglobin 14.1 g/dL (12.0-16.0); Mean Corp Hgb Conc. 32.5 g/dL (33.0-37.0); Mean Corpuscular Volume 86.1 fL (81.0-99.0); Nucleated Red Blood Cells % 0 %; Platelet Count 325 10^3/uL (130-400); Red Cell Dist. Width 14.8 % (11.5-14.5)
--- NOTE | 2025-07-08 09:36 | W.PN.CRS1 ---
Today's Communication / Plan
-
regular diet
stoma teaching
possible d/c later today
Assessment/Plan
-
POD#1 Laparoscopic Ileostomy
WBC: 12.5, Hgb 14.1
vital normal
-Advance diet to regular
-D/C IVFs when tolerating diet
-OOb as tolerated
-Nathan discontinued this AM
-Pain control: Tylenol/Toradol standing, Dilaudid PRN
-Lovenox to start for DVT prophylaxis. TEDs/SCDS in place.
-Stoma cathleen to remain in place until 1-2 weeks.
-Wound RN for teaching at 11am
-Case management for home VN
-Possible d/c later today if tolerating a diet and teaching/home VN completed. All discharge instructions discussed with patient including medications, activity levels, and follow up. All questions answered.
Subjective Data
Procedure
07/07/2025- Laparoscopic Ileostomy
Subjective Data
Date of Service: July 08, 2025
Patient states she feels well. She has some mild pain. She is very hungry. She does not have flatus yet but she does have some liquid stool in her bag. Denies nausea or vomiting. She has been walking the halls.
Objective Data
-
Vital Signs
Temp Pulse Resp BP Pulse Ox
98.2 F 92 18 110/59 99
07/08/25 07:40 07/08/25 03:16 07/08/25 07:40 07/08/25 03:16 07/08/25 07:40
Intake & Output
07/07/25 07/08/25 07/09/25
06:59 06:59 06:59
Intake Total 2330 / 2330 240 / 240
Output Total 2275 / 2275
Balance 55 / 55 240 / 240
Intake:
Oral fluids 960 / 960 240 / 240
IV fluids (Total) 1370 / 1370
Normosol 250 / 250
Output:
Liquid stool amount 50 / 50
Ileostomy 50 / 50
Urine, Nathan 2224 / 2224
Lab Results
07/08/25 08:39
07/08/25 08:39
Physical Exam
-
General: No Acute Distress and AOx3
Abdomen: Soft, Non Distended and Non Tender
Skin: Warm and Dry
Wound: No Signs of Infection
Incision: Clear, Dry, Intact
--- NOTE | 2025-07-08 10:13 | WOUNDNOTE ---
[facility] RN note: Patient s/p loop ileostomy yesterday. Stoma pink. Stoma bridge intact. Otomy supplies given (Komal wafer # [id number], David seals and [place] pouch # [id number]). Patient instructed how to empty pouch, how to cut wafer, snap on pouch.
Answered patient's questions. VN planned. Patient has some liquid brown effluent in pouch. Patient gave verbal permission to order a Komal ostomy secure starter kit. Patient already has an ileostomy teaching folder which was given as an
outpatient. Appliance change due by Saturday.
[2025-07-08] MEDS: TRANSDERM-SCOP 1 PATCH TRANSDERM (11:03)
--- NOTE | 2025-07-08 11:46 | CM ---
Met with patient at bedside
Pharmacy verified: [facility]
IMM benefit explained; form signed @ 1136
Lives w/ partner; one floor apartment (address is [address] [place] [address], [address], [place] [address]); 1 step to enter building; bath has tub w/ shower
PLOF: reported she is independent with ambulation and ADLs; does not work; drives
NO SNF or prior Home Health utilization history
Mother or Partner will provide transport home
CM Consult completed; home health agency options identified; preference is [facility]; referral sent via text to [facility] liaison
Plan: Discharge to home today with home health/[facility] services
[2025-07-08 11:52] VITALS: BP 101/73
--- NOTE | 2025-07-08 12:11 | VNURNOTE ---
Home Health Liaison met with patient and sig other at bedside to discuss [facility] nurse/therapy, visits, schedule and homebound status. Patient is agreeable and understands that visits at home will be 2-3 x per week to assess and teach medical
management. Patient is aware that [facility] will contact them for start of care within a few days after discharge from . Noted on referral that next ileostomy appliance change is MON. Provided contact number for [facility].
[facility] referral completed in [facility] Port.
--- NOTE | 2025-07-08 16:09 | WOUNDNOTE ---
[facility] RN note: Patient enrolled for a ActiveTrak ostomy secure starter kit.
== END 2025-07-08 13:05 | disposition home health service (06) | DRG 331 ==
LOC: 2 SOUTH 10:47
PROVIDERS: ADMITTING PHYSICIAN Surgery; FAMILY PHYSICIAN Family Medicine
PROC: 0D1B4Z4 Bypass Ileum to Cutaneous, Percutaneous Endoscopic Approach (ICD-10-PCS; 2025-07-07)
DX: K59.02 Outlet dysfunction constipation (principal)
CPT/HCPCS: 36415; 80048; 80053; 83036; 85025; 85027; 85610; 85730; 86850; 86900; 86901; J1335

== ENCOUNTER 2025-07-10 12:25 | Inpatient (IN) | payer MEDICARE, OTHER, SELFPAY ==
[2025-07-10 08:42] VITALS: BP 139/100
[2025-07-10 09:11] VITALS: BMI 30.9
[2025-07-10] MEDS: OMNIPAQUE 50 ML PO (09:30)
[2025-07-10 09:35] VITALS: BP 117/83
--- NOTE | 2025-07-10 09:37 | ED.GENMED ---
History of Present Illness
General
Chief Complaint: Post Operative Problem(s)
Source: patient and records
Exam Limitations: none
Time Seen by Provider: 07/10/25 09:04
Nursing documentation reviewed up to this point in time: agreed with
History of Present Illness
History of Present Illness:
44-year-old female with past medical history as noted presents to the ER for evaluation of abdominal pain. Patient has a history of dyssynergy acidic defecation with chronic constipation/IBS; she is having chronic abdominal pain with nausea and
vomiting and incomplete evacuation and ultimately was referred to colorectal surgery and underwent diverting loop ileostomy 07/07/[address] Fuentes. She was discharged on , 07/08/2025. She says that evening when she returned
home she was having some abdominal pain that she attributed to postoperative symptoms.. She says that Saturday she was very fatigued and she noted that she was having some bloody output from ostomy. She did try to eat some small amounts Saturday
evening and unfortunately was up all night last night with nausea, vomiting, abdominal pain and reflux symptoms. She was referred to the ER by her surgeon for further assessment. She has not had fevers or chills. She denies any other acute
complaints.
Past History
Past History
ED Past Medical History: Psychiatric (Bipolar) and Other (Migraine, Tardive Dyskinesia, Renal calculus, Anemia, IBS-C)
ED Past Surgical History: Orthopedic (Left knee surgery), Tonsilectomy (Adenoids) and Other (Abdominoplasty/liposuction/fat transfer to buttocks, Nasal surgery, Breast Augmentation, )
Social History
Tobacco: Former smoker (Uses [employer] to have something to hold)
Alcohol: None
Drug: None
Personal:
Living: with family
Review of Systems
Review of Systems
All Other Systems: ROS reviewed and negative except as documented in HPI and ROS
Constitutional: Denies fever or chills
Respiratory: Denies trouble breathing
Cardiac: Denies chest pain
ABD/GI: Reports abdominal pain, nausea, vomiting and other (Maroon output from ostomy)
Musculoskeletal: Denies neck pain or back pain
Neurological: Denies headache
Phy Exam
Physical Exam
Physical Exam:
General: Awake, alert, oriented x3; sitting forward holding emesis bag
Head: Normocephalic, atraumatic
Eyes: Conjunctiva normal, sclera anicteric
Throat: Airway intact, handling secretions
Neck: Trachea midline, supple without meningismus
Lungs: Clear to auscultation bilaterally, no wheezing, rales, rhonchi
Heart: Tachycardia with regular rhythm, no murmurs, gallops, or rubs
Abd: Soft, nondistended, diffusely tender to palpation with voluntary guarding; stoma noted in right lower quadrant with some serosanguineous output noted; no signs of dehiscence of surgical incisions
Neuro: Grossly intact
Extremities: No edema in extremities, equal pulses in all extremities
Scores
Heart Failure Risk
Heart Failure Risk Score: Not Applicable
Heart Score for Chest Pain Patients
STEMI patient?: Not applicable
Withdrawal Assessment of Alcohol
Withdrawal Assessment Completed?: Not applicable
Course
Orders/Labs/Results
Orders:
Orders
07/10/25 09:04
CT Abd/pel W Iv And Oral Contr Urgent
Comment:
Reason For Exam: abd pain, bleeding from stoma
Iohexol [Omnipaque] See Protocol PO NOW STA
07/10/25 09:14
Add On- LAB Urgent
Tests Added?: HCG qual
07/10/25 09:29
Type+Screen Urgent
Complete Blood Count/With Diff Urgent
Comprehensive Metabolic Panel Urgent
HCG, Serum Qualitative Screen Urgent
Comment: ADD ON
PTT Urgent
Prothrombin Time Urgent
07/10/25 09:37
0.9% Sodium Chloride 1000 ml [Nss] 1,000 ml IV BOLUS
Morphine Sulfate 4 mg IV NOW STA
Ondansetron Injectable [Zofran] 4 mg IV NOW STA
07/10/25 10:52
Benzocaine 20% [Hurricaine [place]] 1 applic .ROUTE .STK-MED ONE
Abnormal Lab Results
07/10/25
09:29
WBC 12.1 H 10^3/uL
(4.8-10.8)
RBC 5.76 H 10^6/uL
(4.20-5.40)
Hgb 16.2 H g/dL
(12.0-16.0)
Hct 48.5 H %
(37.0-47.0)
Abs Immat Gran (auto) 0.1 H 10^3/uL
(0-0.05)
Absolute Neuts (auto) 9.7 H 10^3/uL
(1.4-6.5)
Absolute Monos (auto) 1.0 H 10^3/uL
(0.1-0.6)
Neutrophils % 80.7 H %
(42.2-75.2)
Lymphocytes % 9.9 L %
(20.5-51.1)
Glucose 107 H mg/dl
(70-99)
Total Protein 6.2 L g/dl
(6.3-8.2)
07/10/25 09:29
07/10/25 09:29
Vital Signs
Initial and Last Documented VS:
Initial Vital Signs
Temp Pulse Resp BP Pulse Ox
37.1 C 129 18 139/100 96
07/10/25 08:42 07/10/25 08:42 07/10/25 08:42 07/10/25 08:42 07/10/25 08:42
Last Documented Vital Signs
Temp Pulse Resp BP Pulse Ox
37.1 C 101 16 111/86 96
07/10/25 08:42 07/10/25 10:00 07/10/25 10:00 07/10/25 10:00 07/10/25 09:39
MDM/Problems Addressed
Differential Diagnosis Includes:
Postoperative symptoms, bowel obstruction, abscess/leak
MDM/Problems Addressed:
44-year-old female who is 3 days removed from ileostomy procedure presents with abdominal pain, nausea/vomiting and some bloody output from stoma. She is tachycardic but otherwise normal vitals. Physical exam is as above. Colorectal surgeon is
requesting labs including CBC and a CMP, type and screen. Will check CT abdomen pelvis with p.o. and IV contrast. Discussed with colorectal surgeon staff will follow-up on results and reassess. Will treat symptomatically for the time being and
provide some IV fluids.
Labs reviewed: She does have slight leukocytosis likely in the setting of recent surgery. No fever to suggest an infection. Chemistry unremarkable. CT reviewed by colorectal surgery�recommending NG decompression�surgery to place NG tube. Admit
for continued treatment.
Chronic conditions affecting care:
IBS/bowel motility issues
*Radiology
Radiology exam reviewed: radiology read reviewed
*Pulse Oximetry
SaO2: 96
Oxygen Mode of Delivery: Room air
Patient hypoxic: no (96%)
*Critical Care Note
Total Time (30-74mins, 75-104mins- exclusive of procedures): Not Applicable
Data Reviewed
Review of Other/Old Records Reveals: Labs, Records, Operative Reports and Progress Notes
Source: patient, records, family and physician
Patient Management
Discussion with other providers: Technician Automated [employer] (Discussed with colorectal surgery)
Escalation/DeEscalation of care consider admission/obs:
Admission indicated
ED Attending Note
-
Portions of this chart may have been created with voice recognition software.� Occasional wrong word or��sound alike� substitutions may have occurred due to the inherent limitations of voice recognition software.
Discharge Plan
Departure
Patient Disposition: Admit
Date of Disposition: 07/10/25
Time of Disposition: 10:56
Admit to doctor: Roger
Presentation/result/management discussed w/ accepting MD/DO: Colorectal surgery
Discharge Problem:
Abdominal pain, Nausea & vomiting
Prescriptions:
No Action
valproic acid (as sodium salt) 250 mg/5 mL Solution
250 mg PO HS
Patient Comments:
6.5 ml at hs
zolpidem [Ambien] 10 mg Tablet
5 mg PO HS PRN (Reason: insomnia)
risperidone 0.25 mg tablet
0.75 mg PO HS
Patient Comments:
12/24/2023: taken w/ 0.5mg = 0.75mg
ipratropium bromide 42 mcg (0.06 %) spray,non-aerosol
2 spray INTRANASAL QID
lithium carbonate 150 mg Capsule
300 mg PO HS
tretinoin 0.1 % Cream
1 applic TOPICAL HS
ondansetron HCl 4 mg Tablet
8 mg PO Q8H PRN (Reason: nausea)
lamotrigine [Lamictal] 25 mg Tablet
75 mg PO DAILY
alprazolam [Xanax] 0.5 mg Tablet
0.5 mg PO HS PRN (Reason: anxiety)
alprazolam [Xanax] 0.25 mg Tablet
0.25 mg PO QID PRN (Reason: anxiety)
promethazine 25 mg Tablet
25 mg PO HS
estradiol 0.01 % (0.1 mg/gram) Cream
1 g VAGINAL TUTH
prazosin 2 mg Capsule
2 mg PO HS
Caplyta 21 mg Capsule
See Rx Instructions .ROUTE .COMPLEX
Rx Instructions:
21 mg orally q 48 hours
Voquezna 10 mg Tablet
10 mg PO DAILY
ibuprofen 600 mg Tablet
600 mg PO DAILY PRN (Reason: pain)
Immune Support Gummy
1 dose PO DAILY
risperidone 0.25 mg tablet
0.25 mg PO DAILY
valproic acid (as sodium salt) 250 mg/5 mL (5 mL) Solution
150 mg PO PRN PRN (Reason: Anxiety)
scopolamine base 1 mg over 3 days Patch 3 Day
1 patch TRANSDERMAL Q3D
prazosin 2 mg Capsule
2 mg PO BID
tramadol 50 mg tablet
50 mg PO Q6H PRN (Reason: Pain) Qty: 20 0RF
Referrals:
Freda Mares MD [Family Provider, Family Practice]
Interventions
Interventions:
*Risk Screen - Suicide Last Done: 07/10/25 08:42
*General Assessment Last Done: 07/10/25 08:42
*Neglect/Abuse Screening Last Done: 07/10/25 08:42
*ED- Fall Risk Assessment Last Done: 07/10/25 09:12
*ED COVID-19 Vaccine History Last Done: 07/10/25 09:12
*ED Influenza Vaccine History Last Done: 07/10/25 09:12
ED-Skin Assessment Last Done: 07/10/25 09:50
Discharge Date and Time
Print Language: LIBYAN
[2025-07-10] MEDS: ZOFRAN 4 MG IV ×2 (09:43→11:40)
[2025-07-10] MEDS: NSS 1000 IV (09:43)
[2025-07-10] MEDS: MORPHINE SULFATE 4 MG IV ×2 (09:43→11:39)
[2025-07-10 09:44] LABS: Hematocrit 48.5 % (37.0-47.0); Hemoglobin 16.2 g/dL (12.0-16.0); Mean Corp Hgb Conc. 33.4 g/dL (33.0-37.0); Mean Corpuscular Volume 84.2 fL (81.0-99.0); Nucleated Red Blood Cells % 0 %; Platelet Count 345 10^3/uL (130-400); Red Cell Dist. Width 14.4 % (11.5-14.5)
[2025-07-10 10:00] VITALS: BP 111/86
[2025-07-10 10:12] LABS: APTT 27.9 Sec (23.4-35.0); INR 1.01; PT 13.6 Sec (11.4-14.6)
[2025-07-10 10:23] LABS: ALT (SGPT) 17 U/L (0-35); AST (SGOT) 21 U/L (14-36); Albumin 4.1 g/dl (3.5-5.0); Alkaline Phosphatase 58 U/L (38-126); Blood Urea Nitrogen 7 mg/dl (7-17); Calcium 9.9 mg/dl (8.4-10.2); Carbon Dioxide 29 mmol/L (22-30); Chloride 102 mmol/L (98-107); Estimated Creatinine Clearance 84 ml/min; Glucose 107 mg/dl (70-99); Potassium 4.9 mmol/L (3.5-5.1); Sodium 138 mmol/L (135-145); Total Protein 6.2 g/dl (6.3-8.2); eGFR > 60.00
[2025-07-10 10:27] LABS: HCG, Serum Qualitative Screen Negative
--- NOTE | 2025-07-10 11:46 | HPS.HSE ---
Addendum entered and electronically signed by Alfred Duran MD 07/10/25 12:05:
I saw and examined the patient independently.
The Shoulder Joiner's note was reviewed and I agree with the note, assessment and plan except where noted below.
Comment: This is a 44-year-old female status post laparoscopic assisted loop ileostomy earlier this week who presents with nausea vomiting abdominal pain found to have a small bowel obstruction essentially at the level of the fascia confirmed on CT
which I interpreted myself. NG tube placed to bedside by myself (1 L of thick bilious output) as well as a red rubber catheter in the proximal limb with a escamilla of gas but no liquid output. Ostomy appliance reapplied. Patient is distended on exam
but overall reassuring. Her ostomy is beefy red but pink above the level of the skin. Ostomy cathleen in place.
Plan of care below.
Will discuss with pharmacy about med adjustments in the absence of enteral access which anticipate to take at least 1 to 2 days to resolve.
PPI
NG tube to low intermittent wall suction
Ostomy consult.
I spent 75 minutes in total for the care of this patient today including direct patient care and counseling, reviewing labs, imaging, coordination of care, as well as documentation.
Original Note:
Family Physician
-
Family Physician: Freda Mares MD
Chief Complaint
-
abdominal pain, vomiting
History of Present Illness
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 She states she has had very little output in her
ileostomy and the abdominal pain is quite diffuse. She has vomited several times up until when she came to the ER. She also noted one instance of bloody stools. On arrival to the ER her were WBC was 12.1. She was tachycardic in the 120s. CT of
the abdomen and pelvis shows postoperative changes of the right lower quadrant loop ileostomy. There are numerous dilated loops of small bowel extending to the ileostomy which likely represents a postoperative ileus.
Medical History
Past Medical History
Past Medical History: Reports Other (Bipolar, tardive dyskinesia, hidradenitis suppurativa, anxiety, degenerative disc disease, GERD, bilateral tremor, depression, chronic left knee pain, gastritis, chest pain, dyspepsia, renal stones, pelvic floor
dysfunction, and urinary frequency, arthritis)
Past Surgical History: Reports Other (Tonsillectomy, nasal and thyroid cyst removal, meniscus repair, breast lift and liposuction of arms, abdominoplasty, LSO and right salpingectomy, ileostomy creation on 07/07/2025)
Social History
Tobacco: Non-smoker
Alcohol: None
Living: With Family
Family History
Family History: Not pertinent
Allergies / Home Medications
Allergies reflects when Allergies were last updated in [facility].
Home Medications with original date entered in [facility]
Allergy/Medication List:
allergies: steroids
Home medications:
Xanax 0.5 mg p.o. nightly
Xanax 0.25 mg p.o. 4 times daily as needed
Caplyta
Estradiol 1 g vaginal
Ibuprofen 600 mg p.o. daily as needed
Immune support, 1 dose daily
Ipratropium bromide 2 sprays or nasally 4 times daily
Lamictal 75 mg p.o. daily
Shedd carbonate 300 mg p.o. nightly
Zofran 8 mg p.o. every 8 hours as needed
Prazosin 2 mg p.o. at bedtime
Prazosin 2 mg p.o. twice daily
Promethazine 25 mg p.o. at bedtime
Risperidone 0.25 mg p.o. at bedtime
Risperidone 0.25 mg p.o. daily
Scopolamine base 1 patch transdermal every 3 days
Tramadol 50 mg p.o. every 6 as needed
Tretinoinon 1 application topical at bedtime
Valproic acid 250 mg p.o. at bedtime
Valproic acid 150 mg p.o. as needed
Voquezna 10mg p.o. daily
Ambien 5 mg p.o. nightly as needed
Review of Systems
-
History Source: Patient
A 12 point ROS was completed and negative except as noted: Yes
Abdomen/GI: Reports Abdominal Pain, Nausea, Vomiting, Constipated and Bloody Stools
Physical Exam
Vital Signs
Vital Signs
Temp Pulse Resp BP Pulse Ox
98.8 F 101 16 111/86 96
07/10/25 08:42 07/10/25 10:00 07/10/25 10:00 07/10/25 10:00 07/10/25 09:39
Physical Exam
General: Well Developed, Well Nourished and Pain
GI: Tender (lower portion of ostomy), Distended (mild/moderate) and Other (ileostomy red with stoma cathleen in place, thin liquid output in bag, warm to touch)
Neuro: AO x 3
Laboratory Results
-
07/10/25 09:29
07/10/25:
Laboratory Results
PT 13.6 Sec (11.4-14.6) 07/10/25:
INR 1.01 07/10/25:
APTT 27.9 Sec (23.4-35.0) 07/10/25:
Total Bilirubin 0.5 mg/dl (0.2-1.3) 07/10/25:
AST 21 U/L (14-36) 07/10/25:
ALT 17 U/L (0-35) 07/10/25:
Alkaline Phosphatase 58 U/L (38-126) 07/10/25:
Data Reviewed
-
CT Scan: Image Personally Visualized and interpreted, Report Reviewed by me and Discussed with Patient
Lab Data: Labs Reviewed by me, Discussed with Physician and Discussed with Patient
Impression/Plan
-
IMPRESSION: 44-year-old female with recent ileostomy creation now with nausea vomiting and abdominal pain
PLAN:
-Admit to med surg
-NG tube inserted by Dr. Duran at bedside. Maintain on low intermittent suction. Flush every 4 hours.
- Protonix 40 mg IV daily while NG tube in place
- N.p.o. while NG tube in place
- I have reached out to pharmacy to help with her psychiatric medications to convert them to IV
- Out of bed as tolerated. Okay to ambulate for 30 minutes and NG tube remain clamped.
- Pain control: Tylenol and morphine as needed
- Zofran IV as needed for nausea or vomiting
- Red rubber catheter inserted into ileostomy and flatus was released. Will keep in place for now.
- Wound RN for ileostomy
-Trend labs
- IV fluids while n.p.o.
- Lovenox for DVT prophylaxis. Teds and SCDs in place.
-Discussed with patient and family member at bedside
[2025-07-10] MEDS: NSS (PRESERVATIVE FREE) 10 ML IV (12:33)
[2025-07-10] MEDS: PROTONIX IV 40 MG IV (12:33)
[2025-07-10] MEDS: NICODERM TRANSDERMAL 21 MG TRANSDERM (12:38)
[2025-07-10] MEDS: TRANSDERM-SCOP TRANSDERM (12:39)
[2025-07-10] MEDS: NORMOSOL-R/PLASMALYTE-A 1000 IV (13:19)
[2025-07-10 14:38] VITALS: BMI 31.5
[2025-07-10 14:39] VITALS: BP 128/80
[2025-07-10] MEDS: MORPHINE SULFATE 2 MG IV (16:34)
[2025-07-10] MEDS: PHENERGAN 25 MG PO (16:34)
--- NOTE | 2025-07-10 16:46 | CS.PSYCHR ---
Consult Summary - Psychiatry
-
Patient seen by me from 4:40pm-5:04pm
Psychiatry consult from GI since patient has NG tube placed and is unable to take PO medications to see if there are alternative options to her psychiatric medication regimen. Patient states she sees Akiko Tan D.O as an outpatient and provides the
following medication regimen list:
depakote 250/5ml 6.5ml HS
Prazosin 2mg HS
caplyta 21mg every other evening
Mercedes 150mg BID
xanax 0.25mg QID PRN anxiety and 0.25 HS PRN
Lamictal 75mg AM
Risperdal 0.75mg HS
She states she feels most comfortable under Dr. Tan's guidance and doesn't want changes made without her input. I tried to call her office [phone] but unable to contact her given the weekend. We discussed option to give IV depakote, orally
dissolving risperdal as well as converting xanax dose to Ativan so we can give it IV. Patient is agreeable to this plan. She understands the remainder of her regimen will have to be held until she can take pills again. Per GI, hoping this occurs in
48 hours. Patient states she doesn't usually worry about decompensation until 72 hours after stopping her medications. She says of all them, Risperdal is most helpful and she does 'not worry about her mood stabilizers.' She presents psychiatrically
stable at this time. She denies manic, depressive or psychotic symptoms. Psych note from 2022 indicates patient had presented here manic with psychotic features.
MSE- good eye contact, spontaneous. goal directed. denies SI/HI/AVH. no delusions. fully oriented
PMH: asthma, recent ileostomy creation surgery
Past psych- See above
Social- has boyfriend present in room with her
A/P- 44 yo female with history of bipolar I disorder, unable to take PO medications at this time. Will start IV valproic acid, orally disintegrating Risperdal and IV Ativan for now. Will hold other psychiatric medications and monitor for mood
changes/psychotic symptoms closely.
[2025-07-10] MEDS: LOVENOX 40 MG SC (16:54)
[2025-07-10] MEDS: ZOFRAN 4 MG PO (18:41)
[2025-07-10] MEDS: ATIVAN 0.5 MG IV (20:46)
[2025-07-10] MEDS: RISPERDAL M-TAB (ORALLY DISINTEGRATING) 0.25 MG PO (21:37)
[2025-07-10] MEDS: RISPERDAL M-TAB (ORALLY DISINTEGRATING) 0.5 MG PO (21:37)
[2025-07-10] MEDS: PHENERGAN PO (21:56)
[2025-07-10] MEDS: DEPACON 53.25 MG IV (22:22)
[2025-07-10 23:00] VITALS: BP 101/66
[2025-07-11] MEDS: OFIRMEV 100 IV ×4 (03:13→23:52)
[2025-07-11] MEDS: NORMOSOL-R/PLASMALYTE-A 1000 IV ×2 (03:14→15:59)
[2025-07-11 06:12] VITALS: BP 106/72
--- NOTE | 2025-07-11 06:14 | PTCARENOTE ---
pt reports she feels like she is getting a cold ( watery eyes, nasal congestion and malaise. VSS, has had 2x of Offirmiv this shift for mild headache pain. BURNER OPERATOR notified for further testing of COVID and Flu
--- NOTE | 2025-07-11 06:20 | W.PN.UPDATE ---
Update Note
Progress Note Update
Patient complained of cough and cold symptoms. Denies SOB. Afebrile tem 98.2, RR 16, hr 102, bp 106/72, SPO2 96% RA.
chest x-ray, Covid and flu ordered
[2025-07-11 07:00] VITALS: BP 99/60
[2025-07-11 07:02] LABS: COVID-19 Antigen Negative (Negative)
[2025-07-11] MEDS: PROTONIX IV 40 MG IV (07:29)
[2025-07-11] MEDS: PHENERGAN PO ×3 (07:29→20:11)
[2025-07-11] MEDS: NSS (PRESERVATIVE FREE) 10 ML IV (07:29)
[2025-07-11 08:45] LABS: Hematocrit 42.1 % (37.0-47.0); Hemoglobin 13.9 g/dL (12.0-16.0); Mean Corp Hgb Conc. 33.0 g/dL (33.0-37.0); Mean Corpuscular Volume 85.9 fL (81.0-99.0); Nucleated Red Blood Cells % 0 %; Platelet Count 288 10^3/uL (130-400); Red Cell Dist. Width 14.2 % (11.5-14.5)
[2025-07-11 09:06] LABS: Blood Urea Nitrogen 9 mg/dl (7-17); Calcium 8.6 mg/dl (8.4-10.2); Carbon Dioxide 27 mmol/L (22-30); Chloride 105 mmol/L (98-107); Estimated Creatinine Clearance 93 ml/min; Glucose 81 mg/dl (70-99); Potassium 4.0 mmol/L (3.5-5.1); Sodium 134 mmol/L (135-145); eGFR > 60.00
--- NOTE | 2025-07-11 09:35 | W.PN.GS2 ---
Today's Communication / Plan
-
Out of bed and ambulate as able.
Assessment / Plan
-
This is a 44-year-old female status post laparoscopic loop ileostomy for pelvic dysnergia (07/05/25, Dr. Fuentes) who presents with abdominal pain nausea vomiting found to have obstruction of the ostomy essentially at the level of the fascial defect
status post NG and red rubber catheter placement.
Continue NG for now, awaiting more robust ileostomy output.
Continue IV fluids
Out of bed and ambulate
Appreciate psych recommendations and adjusting meds as able. Anticipate we will be able to remove her NG tube tomorrow and potentially switch her back to oral medications at that time.
Colorectal service to resume care tomorrow.
Time Spent
Total Time Spent with Patient (in minutes): 20
Subjective Data
-
Date of Service: July 11, 2025
Interval Events:
No acute events overnight. Slept okay. Pain Controlled. Denies Nausea/Vomiting, +bowel function. Wants the NG tube out
Objective Data
-
Intake and Output
07/10/25 07/11/25 07/12/25
06:59 06:59 06:59
Intake Total 1660 / 1660
Output Total 400 / 400
Balance 1260 / 1260
Intake:
IV fluids (Total) 1320 / 1320
IV piggybacks 250 / 250
Amount instilled into GI Tube ( 90 / 90
Total)
[place] Sump 90 / 90
Output:
Liquid stool amount 100 / 100
Ileostomy 100 / 100
Gastrointestinal tube output ( 300 / 300
Total)
[place] Sump 300 / 300
Other:
Number of approximated MODERATE 2
amounts of urine
Vital Signs
Temp Pulse Resp BP Pulse Ox
97.6 F 99 16 99/60 94
10/26/25 07:00 07/11/25 07:00 07/11/25 07:00 07/11/25 07:00 07/11/25 07:00
Lab Results
07/11/25 06:41
07/11/25 06:41
Calcium 8.6 mg/dl (8.4-10.2) 07/11/25 06:41
Total Bilirubin 0.5 mg/dl (0.2-1.3) 07/10/25 09:29
AST 21 U/L (14-36) 07/10/25:
ALT 17 U/L (0-35) 07/10/25:29
Alkaline Phosphatase 58 U/L (38-126) 07/10/25:29
Total Protein 6.2 g/dl (6.3-8.2) L 07/10/25:
Albumin 4.1 g/dl (3.5-5.0) 07/10/25 09:29
Physical Exam
-
GENERAL/NEURO: Awake, Alert, no distress
CHEST: Unlabored breathing on RA
ABDOMEN: Soft, Non-Tender, distended. NG tube with light brown bilious output. Ostomy still beefy red, red rubber catheter in place with light brown output.
Patient has a jones catheter: No
Patient has a central line: No
[2025-07-11] MEDS: ATIVAN 0.5 MG IV ×2 (09:40→23:47)
--- NOTE | 2025-07-11 12:48 | CM ---
CM following re: discharge planning.
Reviewed pt's chart, met with pt.
Pt is a 44 year old female, admitted with primary dx of Abdominal pain.
Pt reports she lives alone in an apartment, has supportive sister and a brother, supportive mother. 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 No DME, VN or SNF history.
PCP: Freda Mares
D/C plan: home with anticipated no needs.
CM will follow with discharge plan updates as hospitalization progresses
--- NOTE | 2025-07-11 15:15 | W.PN.UPDATE ---
Update Note
Progress Note Update
Seen by me on 07/11/2025 from 1:30pm-1:45pm
Psychiatry follow up for management of psychiatric medications in context of being unable to take PO medications given recent GI surgery and NG tube. Patient reports doing ok with HS IV depakote, orally dissolving Risperdal and IV ativan PRN so far.
However, She reports increased anxiety over not taking her lamictal this morning and is asking for an increase in frequency of Ativan. She is worried that she could decompensate psychiatrically without it. I contacted surgical team who states
patient can take oral medications today and patient is in agreement to restart her daytime lamictal and HS prazosin. We will hold lithium for now given its likelihood to cause GI upset without food. She will continue with IV depakote and ativan for
now as well as the dissolving risperdal. She understands that Caplyta is not on formulary and she would have to provide her home supply if we were to continue it here.
MSE- good eye contact. anxious mood and affect. logical and goal directed. denies SI/HI/AVH. no delusions. fair insight. fully oriented
A/P- 44 yo female with history of bipolar I disorder with psychosis, currently stable psychiatrically, but increasingly anxious about not having her full outpatient medication regimen at this time. Will give lamictal 75mg now and then every morning.
Will restart prazosin 2mg HS. Will hold lithium secondary to concern for GI upset on empty stomach. Will continue IV depakote, ativan PRN and orally dissolving risperdal. She can request her boyfriend bring in home supply of Caplyta. Chart
indicates significant past history of eliana with psychosis and would like to minimize risk of recurrence. Patient will follow up with Dr. Tan as an outpatient when medically stable. She does not want changes made to her medication regimen without
her input. Will continue to follow her and monitor her mood and for psychosis while in the hospital. Case discussed with nursing.
[2025-07-11] MEDS: LAMICTAL 75 MG PO (15:36)
[2025-07-11] MEDS: MORPHINE SULFATE 4 MG IV (16:47)
[2025-07-11] MEDS: ZOFRAN 4 MG PO (16:58)
[2025-07-11] MEDS: LOVENOX SC (18:07)
--- NOTE | 2025-07-11 18:08 | PTCARENOTE ---
Patient with one episode of n/v. Also complaining of severe right-sided abdominal pain at approx 1645. Abdomen distended. Morphine 4mg and zofran adminsitered at this time and effective. Instructed patient to slow down on drinking, since this would
worsen pain/nausea. Patient agreed. Also instructed to walk around more once feeling better. NGT put out approx 800cc;s this shift and ostomy put out 100cc's.
[2025-07-11] MEDS: MINIPRESS 2 MG PO (21:48)
[2025-07-11] MEDS: RISPERDAL M-TAB (ORALLY DISINTEGRATING) 0.75 MG PO (21:49)
[2025-07-11 23:42] VITALS: BP 126/83
[2025-07-12] MEDS: DEPACON 53.25 MG IV (00:06)
[2025-07-12] MEDS: NORMOSOL-R/PLASMALYTE-A IV (04:25)
[2025-07-12] MEDS: OFIRMEV 100 IV (06:03)
[2025-07-12] MEDS: ZOFRAN 4 MG PO (06:04)
[2025-07-12] MEDS: PROTONIX IV 40 MG IV (06:04)
[2025-07-12] MEDS: NSS (PRESERVATIVE FREE) 10 ML IV (06:05)
[2025-07-12 08:00] VITALS: BP 113/68
[2025-07-12] MEDS: NORMOSOL-R/PLASMALYTE-A 1000 IV ×2 (08:22→17:26)
[2025-07-12] MEDS: NICODERM TRANSDERMAL 21 MG TRANSDERM (08:23)
[2025-07-12] MEDS: PHENERGAN 25 MG PO (08:27)
[2025-07-12] MEDS: LAMICTAL 75 MG PO (08:27)
--- NOTE | 2025-07-12 09:09 | VNURNOTE ---
Addendum entered by Mallika Gillespie RN 07/12/25 15:20:
[facility] liaison met with pt and mom at bedside. Re-introduced self. Pt agreeable to VN services as discussed last admission. Referral accepted in [facility].
Original Note:
Chart reviewed. Patient was scheduled to start services with [facility] IP COUNSEL. She was re-admitted to before services started. [facility] in [facility]. Will continue to follow hospitalization course and DC plans.
--- NOTE | 2025-07-12 10:23 | W.PN.CRS1 ---
Today's Communication / Plan
-
Continue current measures.
Assessment/Plan
-
Postop ileus.
1. high NGT output and minimal stoma output. Continue npo, IVFs, NGT. Ok with hard candy.
2. check abdominal plain films tomorrow am.
3. OOB.
Subjective Data
Subjective Data
Date of Service: July 12, 2025
Patient wants to go home. 'Can I have ice cream?'.
Objective Data
-
Vital Signs
Temp Pulse Resp BP Pulse Ox
98.2 F 97 20 113/68 93
07/11/25 23:42 07/12/25 08:00 07/12/25 08:00 07/12/25 08:00 07/12/25 08:00
Intake & Output
07/11/25 07/12/25 07/13/25
06:59 06:59 06:59
Intake Total 1660 / 1660 2780 / 2780 30 / 30
Output Total 400 / 400 2500 / 2500 50 / 50
Balance 1260 / 1260 280 / 280 -20 / -20
Intake:
Oral fluids 120 / 120
IV fluids (Total) 1320 / 1320 2420 / 2420
IV piggybacks 250 / 250 150 / 150
Amount instilled into GI Tube ( 90 / 90 90 / 90 30 / 30
Total)
[place] Sump 90 / 90 90 / 90 30 / 30
Output:
Liquid stool amount 100 / 100 200 / 200 50 / 50
Ileostomy 100 / 100 200 / 200 50 / 50
Gastrointestinal tube output ( 300 / 300 2300 / 2300
Total)
[place] Sump 300 / 300 2300 / 2300
Other:
Number of approximated MODERATE 2
amounts of urine
Number of approximated LARGE 1
amounts of urine
Physical Exam
-
General: No Acute Distress
Chest: Clear
Cardiovascular: Regular Rate & Rhythm
Abdomen: Distended (mild), Tender (mild incisional) and Other (stoma viable with a bit of gas in bag)
Extremities: No Calf Tenderness
[2025-07-12] MEDS: NON-FORMULARY ITEM 1 UNIT NASAL ×4 (10:44→21:11)
--- NOTE | 2025-07-12 11:02 | PTCARENOTE ---
Pt refusing am lab draw and temperature check. Pt educated on purpose, agreeable to lab draw, phlebotomy notified and to draw labs, care ongoing.
[2025-07-12 11:21] LABS: Hematocrit 39.1 % (37.0-47.0); Hemoglobin 12.8 g/dL (12.0-16.0); Mean Corp Hgb Conc. 32.7 g/dL (33.0-37.0); Mean Corpuscular Volume 85.4 fL (81.0-99.0); Platelet Count 266 10^3/uL (130-400); Red Cell Dist. Width 13.8 % (11.5-14.5)
[2025-07-12 12:19] LABS: Blood Urea Nitrogen 14 mg/dl (7-17); Calcium 8.2 mg/dl (8.4-10.2); Carbon Dioxide 22 mmol/L (22-30); Chloride 106 mmol/L (98-107); Estimated Creatinine Clearance 109 ml/min; Glucose 68 mg/dl (70-99); Magnesium 1.9 mg/dl (1.6-2.3); Potassium 4.5 mmol/L (3.5-5.1); Sodium 136 mmol/L (135-145); eGFR > 60.00
--- NOTE | 2025-07-12 12:45 | WOUNDNOTE ---
WOC RN note: Patient's stoma red and budded with stoma bridge and red rubber catheter in place. Liquid brown effluent in pouch which was emptied. Peristomal skin with mild rash distally. Instructed patient ileostomy appliance change using [place]
wafer # [id number] and Komal pouch # [id number]. Extra ostomy wafer and pouch left in room. Ostomy supplies were given during recent admission. Next appliance change due or Saturday.
--- NOTE | 2025-07-12 14:24 | CM ---
CM following re: discharge planning.
Reviewed pt's chart, met with pt.
Per colorectal surgery continue current measures: npo, IVFs, NGT.
Pt lives alone in an apartment, has supportive sister and a brother, supportive mother. 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
D/C plan: home with anticipated no needs.
CM will follow with discharge plan updates as hospitalization progresses
--- NOTE | 2025-07-12 15:32 | W.PN.UPDATE ---
Update Note
Progress Note Update
met with patient, reviewed notes, spoke with outpatient psychiatrist Dr. John. Will plan on increasing risperdal to 1 mg, and increase valproate to 400 mg. won't increase lamictal yet. Pt is feeling irritable, possible beginning of eliana
--- NOTE | 2025-07-12 15:54 | PTCARENOTE ---
Pt refusing VS at this time, educated on purpose, continuing to refuse. Care ongoing.
[2025-07-12] MEDS: LOVENOX 40 MG SC (17:26)
[2025-07-12] MEDS: PHENERGAN PO (20:24)
[2025-07-12] MEDS: ATIVAN 0.5 MG IV (20:30)
[2025-07-12] MEDS: MINIPRESS 2 MG PO (21:12)
[2025-07-12] MEDS: RISPERDAL 1 MG PO (21:12)
[2025-07-12] MEDS: DEPACON 54 MG IV (21:12)
--- NOTE | 2025-07-12 22:51 | PTCARENOTE ---
Pt refusing VS at this time, educated on purpose, continuing to refuse. Care ongoing.
--- NOTE | 2025-07-13 00:21 | PTCARENOTE ---
Pt started c/o extreme reflux. TT loni Mancini and instructed to reach out to colorectal environmental remediation consultant which was Dr. Villalobos. 40mg IV Protonix x1 stat ordered and administered. Pt then started c/o of ngt 'choking and stabbing' her saying there has to be
another way to solve this. Offered benzocaine cough drops and throat spray but refused. Pt then questioned what would happen if she pulled the tube out. Educated pt on risks of removing the tube and plan for the am. 2mg iv morphine administered for
pain. Pain reassessment was 0/[address] Villalobos made aware via TT. Care ongoing.
[2025-07-13] MEDS: NSS (PRESERVATIVE FREE) 10 ML IV ×2 (00:52→07:59)
[2025-07-13] MEDS: PROTONIX IV 40 MG IV ×2 (00:53→07:59)
--- NOTE | 2025-07-13 01:08 | PTCARENOTE ---
Pt refusing 0000 NGT flush. Educated pt on purpose and still refusing. Care ongoing.
[2025-07-13] MEDS: MORPHINE SULFATE 2 MG IV ×3 (01:52→17:04)
[2025-07-13] MEDS: ZOFRAN 4 MG IV ×2 (02:03→05:36)
[2025-07-13] MEDS: NORMOSOL-R/PLASMALYTE-A 1000 IV (04:15)
[2025-07-13 07:40] VITALS: BP 119/80
[2025-07-13] MEDS: LAMICTAL 75 MG PO (07:58)
[2025-07-13] MEDS: PHENERGAN 25 MG PO (07:58)
[2025-07-13] MEDS: NON-FORMULARY ITEM 1 UNIT NASAL ×4 (07:58→21:10)
[2025-07-13] MEDS: NICODERM TRANSDERMAL 21 MG TRANSDERM (07:59)
--- NOTE | 2025-07-13 09:02 | W.PN.CRS1 ---
Today's Communication / Plan
-
ngt removed
fulls to low residue
Assessment/Plan
-
Postop ileus.
1. NGT removed at bedside
2. D/C abdominal xray
3. OOB.
4. Fulls to low residue.
5. Okay for psych to convert IV meds to oral medications
Subjective Data
Subjective Data
Date of Service: July 13, 2025
Patient states she is feeling well. She has no complaints other than the ngt. She denies nausea or vomiting. Pain is controlled.
Objective Data
-
Vital Signs
Temp Pulse Resp BP Pulse Ox
98.9 F 94 18 119/80 93
07/13/25 07:40 07/13/25 07:40 07/13/25 07:40 07/13/25 07:40 07/13/25 07:40
Intake & Output
07/12/25 07/13/25 07/14/25
06:59 06:59 06:59
Intake Total 2780 / 2780 1704 / 1704
Output Total 2500 / 2500 2054 / 2054
Balance 280 / 280 -351 / -351
Intake:
Oral fluids 120 / 120 240 / 240
IV fluids (Total) 2420 / 2420 1320 / 1320
IV piggybacks 150 / 150 54 / 54
Amount instilled into GI Tube ( 90 / 90 90 / 90
Total)
[place] Sump 90 / 90 90 / 90
Output:
Liquid stool amount 200 / 200 1520 / 1520
Ileostomy 200 / 200 1520 / 1520
Gastrointestinal tube output ( 2300 / 2300 535 / 535
Total)
[place] Sump 2300 / 2300 535 / 535
Other:
Number of approximated MODERATE 1
amounts of urine
Number of approximated LARGE 1
amounts of urine
Lab Results
07/12/25 11:07
07/12/25 11:07
Physical Exam
-
General: No Acute Distress and AOx3
Abdomen: Soft, Non Distended, Non Tender and Other (ileostomy warm and pink with output and flatus)
Skin: Warm and Dry
Incision: Clear, Dry, Intact
--- NOTE | 2025-07-13 11:08 | W.PN.UPDATE ---
Update Note
Progress Note Update
patient seen chart reviewed. spoke with nursing and cm. patient was very pleasant. she told us what meds she is taking with 100 per cent accuracy. she is maintaining contact with her psychiatrist prescriber in fact has a meeting tomorrow via phone.
she is starting to eat which is a + for her. she asked me the theoretical question if she needed to be hosp for bipolar disorder where could she go w an ileostomy. she could conceivably go to a psych unit in a general hospital. at this point i
don't see her needing hospital. would continue psych meds as they are lamictal prazosin risperdal and depakote. psych will sign off.l patient says she is likely leaving in the am.
[2025-07-13] MEDS: NORMOSOL-R/PLASMALYTE-A IV ×2 (12:25→17:05)
[2025-07-13] MEDS: REMOVE SCOPOLAMINE PATCH 1 PATCH REMOVE (13:02)
[2025-07-13] MEDS: TRANSDERM-SCOP 1 PATCH TRANSDERM (13:02)
[2025-07-13] MEDS: ZOFRAN 4 MG PO (15:02)
[2025-07-13 15:35] VITALS: BP 119/78
[2025-07-13] MEDS: LOVENOX 40 MG SC (17:03)
[2025-07-13] MEDS: NON-FORMULARY ITEM 10 MG PO (17:06)
[2025-07-13] MEDS: PHENERGAN PO (19:35)
[2025-07-13] MEDS: DEPACON 54 MG IV (21:03)
[2025-07-13] MEDS: RISPERDAL 1 MG PO (21:03)
[2025-07-13] MEDS: ATIVAN 0.5 MG PO (21:04)
[2025-07-13] MEDS: MINIPRESS 2 MG PO (21:09)
[2025-07-13 23:00] VITALS: BP 121/79
[2025-07-14] MEDS: ZOFRAN 4 MG PO (04:51)
[2025-07-14] MEDS: TYLENOL 650 MG PO (05:21)
[2025-07-14 07:00] VITALS: BP 115/80
[2025-07-14] MEDS: NICODERM TRANSDERMAL 21 MG TRANSDERM (08:44)
[2025-07-14] MEDS: LAMICTAL 75 MG PO (08:44)
[2025-07-14] MEDS: ATIVAN 0.5 MG PO (08:44)
[2025-07-14] MEDS: NON-FORMULARY ITEM 2 UNIT NASAL (08:44)
[2025-07-14] MEDS: NON-FORMULARY ITEM 10 MG PO (08:45)
[2025-07-14] MEDS: PHENERGAN PO (08:45)
[2025-07-14] MEDS: PROTONIX IV 40 MG IV (08:46)
[2025-07-14] MEDS: NSS (PRESERVATIVE FREE) 10 ML IV (08:46)
--- NOTE | 2025-07-14 09:18 | W.PN.CRS1 ---
Today's Communication / Plan
-
discharge
Assessment/Plan
-
Postop ileus.
1. Tolerating a low residue diet.
2. Stoma cathleen undone at bedside - in bag, and will be removed with next bag change.
3. OOB.
4. On a low residue diet.
5. Appreciate psych for oral conversion of meds.
6. Okay for d/c today. All discharge instructions discussed with patient including medications, activity levels and follow up. All questions addressed.
Subjective Data
Subjective Data
Date of Service: July 14, 2025
Patient states she is feeling well. She has no nausea or vomiting. She is tolerating a diet. Overall she has no complaints. She is walking the halls. Her stoma has function.
Objective Data
-
Vital Signs
Temp Pulse Resp BP Pulse Ox
98.9 F 92 16 115/80 95
07/14/25 07:00 07/14/25 07:00 07/14/25 07:00 07/14/25 07:00 07/14/25 07:00
Intake & Output
07/13/25 07/14/25 07/15/25
06:59 06:59 06:59
Intake Total 1704 / 1704 2710 / 2710
Output Total 2054 105 / 105
Balance -351 / -351 2605 / 2605
Intake:
Oral fluids 240 / 240 1999 / 1999
IV fluids (Total) 1320 / 1320 660 / 660
IV piggybacks 54 / 54 50 / 50
Amount instilled into GI Tube ( 90 / 90
Total)
[place] Sump 90 / 90
Output:
Liquid stool amount 1520 / 1520 105 / 105
Ileostomy 1520 / 1520 105 / 105
Gastrointestinal tube output ( 535 / 535
Total)
[place] Sump 535 / 535
Other:
Number of approximated MODERATE 1 2
amounts of urine
Lab Results
07/12/25 11:07
07/12/25 11:07
Physical Exam
-
General: No Acute Distress and AOx3
Abdomen: Soft, Non Distended, Non Tender and Other (colostomy warm and pink with flatus and some stool in bag)
Skin: Warm and Dry
Incision: Clear, Dry, Intact
--- NOTE | 2025-07-14 09:49 | CM ---
Patient seen at bedside on . Patient stated that she wanted to have [facility] restarted. CM sent tt to Liaison and await response. Patient physician also updated. Patient stated that she will have transportation home and completed IMM form, signed
form placed on chart. CM will continue to follow for discharge planning needs.
Plan; home with [facility] pending acceptance
== END 2025-07-14 10:13 | disposition home health service (06) | DRG 390 ==
LOC: 2 SOUTH 12:25
PROVIDERS: Nurse Practitioner Family; Physician Assistant; Registered Nurse; ADMITTING PHYSICIAN Surgery; ATTENDING PHYSICIAN Surgery; CONSULT PHYSICIAN Psychiatry & Neurology Psychiatry; EMERGENCY PHYSICIAN Emergency Medicine; FAMILY PHYSICIAN Family Medicine
DX: K91.30 Postprocedural intestinal obstruction, unspecified as to partial versus complete (principal); F41.9 Anxiety disorder, unspecified; K21.9 Gastro-esophageal reflux disease without esophagitis; G89.29 Other chronic pain; F31.9 Bipolar disorder, unspecified; F17.290 Nicotine dependence, other tobacco product, uncomplicated; D64.9 Anemia, unspecified; J45.909 Unspecified asthma, uncomplicated; K58.1 Irritable bowel syndrome with constipation; L73.2 Hidradenitis suppurativa; Z11.52 Encounter for screening for COVID-19
CPT/HCPCS: 43752; 71045; 74177; 80048; 80053; 83735; 84703; 85025; 85027; 85610; 85730; 86850; 86900; 86901; 87502; 87811; 93005; 96361; 96374; 96375; 96376; 99284; Q9967